=== PATIENT | male | born 1955 | race Caucasian/White ===

== ENCOUNTER → 2022-09-03 | Outpatient (CLI) | payer MEDICARE ==
[~2022-09-03] MED LIST: HYDROCHLOROTH12.5 M1 PO; ICAPS PLUS1 EACH PO; NIFEDIPINE20 MG PO
== END ==
LOC: CT 10:26
PROVIDERS: ATTEND Internal Medicine
DX: M79.601 Pain in right arm (principal); M25.521 Pain in right elbow; M54.2 Cervicalgia
CPT/HCPCS: 72125